=== PATIENT | male | born 1985 | race Caucasian/White ===

== ENCOUNTER 2018-12-17 14:45 | Emergency (ER) | payer OTHER ==
[~2018-12-17] VITALS: Ht 170.2 cm; Wt 88.6 kg
[2018-12-17] MEDS ORDERED: PRED20TA PO (19:00)
[2018-12-17] MEDS ORDERED: TRIA1CR80 TOP (19:00)
[2018-12-17] MEDS ORDERED: methylPREDNISolone INJ 125 MG/2 ML VIAL (J2930) IM ONE (19:00)
[2018-12-17 19:19] VITALS: BP 149/92
== END 2018-12-17 19:23 | disposition home or self-care (01) ==
LOC: M ED 14:45
DX: L25.9 Unspecified contact dermatitis, unspecified cause (principal); Z91.048 Other nonmedicinal substance allergy status
CPT/HCPCS: 96372; 99283; J2930